=== PATIENT | female | born 1960 | race Caucasian/White ===

== ENCOUNTER 2019-10-09 14:38 | Outpatient (CLI) | payer OTHER | END 2019-10-09 23:59 | disposition home or self-care (01) | LOC: ROC 14:38 | PROVIDERS: ATTEND Radiology Radiation Oncology | DX: C50.811 Malignant neoplasm of overlapping sites of right female breast (principal) | CPT/HCPCS: 77280; 77290; 77295; 77300; 77334; 77336; 77412; 77417; 99214; G0463 ==

== ENCOUNTER 2019-12-21 10:06 | Outpatient (CLI) | payer OTHER | END 2019-12-21 23:59 | disposition home or self-care (01) | LOC: ROC 10:06 | PROVIDERS: ATTEND Radiology Radiation Oncology | DX: Z08 Encounter for follow-up examination after completed treatment for malignant neoplasm (principal); C50.411 Malignant neoplasm of upper-outer quadrant of right female breast | CPT/HCPCS: 99213; G0463 ==